=== PATIENT | male | born 1950 | race Caucasian/White ===

== ENCOUNTER 2020-05-10 10:40 | Outpatient (CLI) | payer MEDICARE | END 2020-05-10 10:41 | disposition home or self-care (01) | LOC: CSHULT 10:40 | PROVIDERS: ATTEND Internal Medicine Critical Care Medicine | DX: R06.00 Dyspnea, unspecified (principal); R06.09 Other forms of dyspnea; Z86.16 Personal history of COVID-19; I51.89 Other ill-defined heart diseases; I34.8 Other nonrheumatic mitral valve disorders; I34.0 Nonrheumatic mitral (valve) insufficiency; I35.8 Other nonrheumatic aortic valve disorders | CPT/HCPCS: 93306 ==

== ENCOUNTER 2020-06-23 12:00 | Outpatient (CLI) | payer MEDICARE ==
[2020-06-24 11:37] LABS: SARS-CoV-2 PCR by NAA Not Detected (NotDetected)
== END 2020-06-23 12:01 | disposition home or self-care (01) ==
LOC: CSHLAB 12:00
PROVIDERS: ATTEND Internal Medicine Critical Care Medicine
DX: Z20.822 Contact with and (suspected) exposure to COVID-19 (principal); R06.09 Other forms of dyspnea; Z86.16 Personal history of COVID-19
CPT/HCPCS: 87635; U0003; U0005

== ENCOUNTER 2020-06-28 15:41 | Outpatient (CLI) | payer MEDICARE | END 2020-06-28 15:42 | disposition home or self-care (01) | LOC: CSHCP 15:41 | PROVIDERS: ATTEND Internal Medicine Critical Care Medicine | DX: R06.09 Other forms of dyspnea (principal); R94.2 Abnormal results of pulmonary function studies | CPT/HCPCS: 94060; 94726; 94729; 94760 ==